=== PATIENT | female | born 1970 | race Hispanic/Latino ===

== ENCOUNTER 2018-05-09 08:26 | Outpatient (CLI) | payer BC ==
--- NOTE | 2018-05-09 14:41 | Magnetic Resonance Report ---
BILATERAL BREAST MRI WITHOUT AND WITH CONTRAST: 05/09/18 08:26:00 CLINICAL: Family history of breast cancer. Breast cancer in her mother at 48 with a recurrence in the other breast at 58. Breast cancer in her paternal aunt diagnosed at 48. The patient's mother underwent BRCA testing before 2011 with negative results. COMPARISON:Normal screening mammogram 09/17/17. TECHNIQUE: Axial 1.0-mm T1 without, axial high resolution 2.0-mm T2 and axial 1.0-mm dynamic Vibrant high-resolution postcontrast T1 fat saturation sequences on a 1.5 Sapphire magnet. The examination was performed with an 8 channel dedicated [place] breast coil. Post processing with CAD and subtraction was performed on an [employer] workstation. 16.0 cc of Multihance was injected without incident for the contrast portion of the exam. Consent was obtained prior to the administration of the contrast. FINDINGS: Right: Minimal background parenchymal enhancement. No mass or suspicious enhancement. No suspicious right axillary or right internal mammary lymph nodes. Left: Minimal background parenchymal enhancement. No mass or suspicious enhancement. No suspicious left axillary or left internal mammary lymph nodes. IMPRESSION: Normal study. Recommend routine annual mammographic screening. The BI-RADS 1 - - Negative
== END 2018-05-09 08:27 | disposition home or self-care (01) ==
LOC: SPVIMAG 08:26
PROVIDERS: ATTEND Surgery
DX: Z03.89 Encounter for observation for other suspected diseases and conditions ruled out (principal); Z80.3 Family history of malignant neoplasm of breast
CPT/HCPCS: A9577; C8908; 77049

== ENCOUNTER 2020-01-24 14:44 | Outpatient (CLI) | payer BC, OTHER ==
--- NOTE | 2020-01-24 16:21 | Magnetic Resonance Report ---
Bilateral breast MRI with and without contrast. History: FAMILY HX OF BREAST CA Procedure: Axial T1 and T2-weighted fat-sat images were obtained precontrast. 15 cc MultiHance was i njected intravenously and serial axial T1-weighted images with fat saturation were obtained postcontr ast. 3-D MIP projections, Kinetic analysis and subtraction imaging was utilized to evaluate. A [address] 8 channel breast coil was utilized for image acquisition. Comparison: Bilateral mammogram 01/03/2020, MR breast 05/09/2018 Findings: Background level of enhancement is minimal. No suspicious axillary or clavicular nodes are identified. No abnormal bone marrow signal is seen. No significant chest wall enhancement is noted. Right breast: Minimal stippled enhancement is unchanged. No suspicious lesions or significant changes are noted. Left breast: No suspicious lesions are seen. Impression: No suspicious lesions are seen BIRADS: 2: Benign Signer Name: Salazar Ochoa MD Signed: 01/24/2020 4:16 PM Workstation Name: [id number]
== END 2020-01-24 14:45 | disposition home or self-care (01) ==
LOC: SPVIMAG 14:44
PROVIDERS: ATTEND Surgery
DX: Z12.31 Encounter for screening mammogram for malignant neoplasm of breast (principal); Z80.3 Family history of malignant neoplasm of breast
CPT/HCPCS: A9577; C8908; 77049

== ENCOUNTER 2021-01-13 09:38 | Outpatient (CLI) | payer BC ==
--- NOTE | 2021-01-13 11:53 | Mammography Report ---
DIGITAL SCREENING MAMMOGRAM WITH CAD, 01/13/2021 CLINICAL INFORMATION / INDICATION: Routine screening mammography. TECHNIQUE: Digital bilateral 2D mammography was obtained in the craniocaudal and mediolateral obliqu e projections. This examination was interpreted with the benefit of Computer-Aided Detection analysis . COMPARISON: 01/03/2020, 09/16/2017, 08/31/2016 FINDINGS: Breast Density: There are scattered areas of fibroglandular density. No dominant mass, suspicious calcifications, or architectural distortion in either breast. IMPRESSION: No mammographic evidence of malignancy. Follow up recommendation: Routine yearly BI-RADS Category 1: Negative. A "normal" or negative report should not discourage follow up or biopsy of a clinically significant f inding. A written summary of these findings will be mailed to the patient. The patient will be entered into a mammography reporting system which will generate a reminder letter for the patient's next appointmen t at the appropriate interval. The [employer] recommends yearly mammograms starting at age 40 and continuing as l joon as a woman is in good health. Breast MRI is recommended for women with an approximate 20-25% or greater lifetime risk of breast cancer, including women with a strong family history of breast or ova akshat cancer or who have been treated for Hodgkin's disease. Signer Name: Lesia South MD Signed: 01/13/2021 11:48 AM Workstation Name: [id number]
== END 2021-01-13 09:39 | disposition home or self-care (01) ==
LOC: SPVWC 09:38
PROVIDERS: ATTEND Obstetrics & Gynecology
DX: Z12.31 Encounter for screening mammogram for malignant neoplasm of breast (principal)
CPT/HCPCS: 77063; 77067